=== PATIENT | female | born 1955 | race Caucasian/White ===

== ENCOUNTER 2025-01-21 06:55 | Day surgery (SDC) | payer BC ==
[~2025-01-21 06:55] MED LIST: Sodium Chloride 0.9% 10 ML Syringe FLUSH PRN; Sodium Chloride 0.9% 10 ML Syringe FLUSH SCH
[2025-01-21] MEDS ORDERED: Ondansetron 4 MG/2 ML SDV ONE (07:18)
[2025-01-21] MEDS ORDERED: Midazolam 1 MG/ML 2 ML SDV ONE (07:19)
[2025-01-21] MEDS ORDERED: Propofol 200 MG/20 ML SDV ONE (07:19)
[2025-01-21] MEDS: Lactated Ringers 1,000 ML IV SCH (07:20)
[2025-01-21] MEDS: oxyCODONE ER 10 MG TAB.ER PO ONE (07:32)
[2025-01-21] MEDS ORDERED: Ondansetron 4 MG/2 ML SDV IVPUSH PRN (07:48)
[2025-01-21] MEDS ORDERED: fentaNYL 100 MCG/2 ML SDV IVPUSH PRN (07:48)
[2025-01-21] MEDS ORDERED: dexmedeTOMIDine HCl 200 MCG/2 ML SDV ONE (08:46)
[2025-01-21] MEDS ORDERED: Ropivacaine 0.5% 5 MG/ML 30 ML SDV ONE (08:46)
[2025-01-21] MEDS ORDERED: Lactated Ringers 1,000 ML ONE (09:28)
[2025-01-21] MEDS: Morphine 8 MG, EPINEPHrine 0.3 MG, Cefuroxime 750 MG, Ketorolac 30 MG, Sodium Chloride ... PRN (09:42)
[2025-01-21] MEDS ORDERED: Ketorolac 30 MG/ML SDV ONE (09:52)
[2025-01-21] MEDS: Triamcinolone Acetonide 40 MG/ML 1 ML SDV ONE (09:53)
== END 2025-01-21 14:50 | disposition home or self-care (01) ==
LOC: JD.SDS 06:55 → MERGE 07:00 → JD.SDS 14:50
PROVIDERS: ATTEND Orthopaedic Surgery
DX: M17.11 Unilateral primary osteoarthritis, right knee (principal); Z88.5 Allergy status to narcotic agent
CPT/HCPCS: 0055T; 27447; 64447; 73560; 97116; 97161; 97530; A9270; C1713; C1776; J0169; J0665; J0690; J0697; J1885; J2250; J2272; J2405; J2704; J2795; J3301; J3373; J7120; 01402